=== PATIENT | female | born 1935 | race Two or more races ===

== ENCOUNTER 2016-10-08 12:40 | Emergency (ER) | payer MEDICAID ==
[~2016-10-08] VITALS: Ht 152.4 cm; Wt 63.5 kg
[2016-10-08] MEDS ORDERED: MORPHINE SULF INJ 2 MG/ML SYRINGE 1ML IM ONE (14:15)
[2016-10-08 14:51] VITALS: BP 139/62
== END 2016-10-08 17:16 | disposition home or self-care (01) ==
LOC: EDBD 12:40 → ER 12:40
DX: S73.101A Unspecified sprain of right hip, initial encounter (principal); R10.31 Right lower quadrant pain; E11.9 Type 2 diabetes mellitus without complications; M79.1 Myalgia; M16.11 Unilateral primary osteoarthritis, right hip; Z90.710 Acquired absence of both cervix and uterus; X58.XXXA Exposure to other specified factors, initial encounter; Y93.89 Activity, other specified; Y99.8 Other external cause status; Y92.89 Other specified places as the place of occurrence of the external cause
CPT/HCPCS: 74176; 81002; 93005; 96372; 99284; J2270

== ENCOUNTER 2023-02-20 16:02 | Emergency (ER) | payer MEDICAID ==
[~2023-02-20] VITALS: Ht 142.2 cm; Wt 55.9 kg
[2023-02-20] MEDS ORDERED: cloNIDine HCL 0.1 MG TAB PO ONE (16:45)
[2023-02-20 18:52] LABS: Basophils # (auto) 0 10 ^3/uL (0-0.2); Basophils % (auto) 0.5 % (0.0-2.0); Eosinophils # (auto) 0.3 10 ^3/uL (0-0.8); Hematocrit 40.1 % (36.0-46.0); Hemoglobin 13.4 g/dL (12.2-16.2); Lymphocytes # (auto) 2.2 10 ^3/uL (0.4-5.4); Lymphocytes % (auto) 28.4 % (10.0-50.0); Mean Corpuscular Hemoglobin 31.4 pg (28.0-32.0); Mean Corpuscular Hgb Conc. 33.4 g/dL (32.0-36.0); Mean Corpuscular Volume 94.1 fL (80.0-100.0); Monocytes # (auto) 0.4 10 ^3/uL (0-1.3); Monocytes % (auto) 5.3 % (0.0-12.0); Neutrophils # (auto) 4.8 10 ^3/uL (1.6-8.6); Neutrophils % (auto) 61.8 % (37.0-80.0); Nucleated Red Blood Cells % 0.1 %; Red Blood Cells 4.26 10^6/uL (4.0-5.20); Red Cell Distribution Width 13.6 % (11.8-14.3); White Blood Cell 7.7 10^3/uL (4.4-10.8)
[2023-02-20 19:10] LABS: Alanine Aminotransferase 20 U/L (7-40); Albumin 4.3 g/dL (3.2-4.8); Alkaline Phosphatase 89 U/L (46-116); Anion Gap 7 (5-15); Aspartate Aminotransferase 22 U/L (13-40); BUN/Creatinine Ratio 24.3 (10.0-20.0); Bilirubin, Total 0.3 mg/dL (0.2-1.0); Blood Urea Nitrogen 17 mg/dL (9-23); Calcium 9.4 mg/dL (8.5-10.1); Carbon Dioxide 26 mmol/L (20-30); Chloride 106 mmol/L (98-107); Glucose 121 mg/dL (74-106); Potassium 4.4 mmol/L (3.5-5.1); Sodium 139 mmol/L (136-145); Total Protein 7.1 g/dL (5.7-8.2)
[2023-02-20 22:05] VITALS: BP 130/72; PULSE 63; RESP 18; TEMP 97.6; O2SAT 96
== END 2023-02-20 22:08 | disposition home or self-care (01) ==
LOC: ER 16:02
DX: I16.0 Hypertensive urgency (principal); E11.9 Type 2 diabetes mellitus without complications
CPT/HCPCS: 36415; 80053; 84484; 85025; 93005